=== PATIENT | male | born 1975 | race American Indian/Alaskan Native ===

== ENCOUNTER 2017-05-05 11:41 | Emergency (ER) | payer OTHER ==
--- NOTE | 2017-05-05 13:49 | Emergency Department Report ---
Chief Complaint: Extremity Injury, Lower Stated Complaint: LEFT FOOT PAIN Time Seen by Provider: 05/05/17 12:15 - HPI History of Present Illness: Patient here reports that he injured is left thigh and left foot about a week and a half ago. He is reporting swelling to his left leg, ankle and foot and also to his left thigh. Patient also reported in he has open sores to his left thigh and left outer foot that has healed these having redness and swelling. Pain to left foot is 3/10 and pain to left leg and knee is 7 out of 10. He said a car trailer fell on his left thigh about a week and a half ago. He is not seeking any medical attention. Denies any chest pain or shortness of breath. He said he has a knot to his left thigh. [id number] pain medication taken and he states that he's also been applying Neosporin ointment. - - ROS Review of Systems: ROS Review of Systems: All systems are negative unless stated in HPI above - Exam Vital Signs: - Exam Vital Signs: Vital Signs 05/05/17 05/05/17 12:18 12:19 Temperature 98.8 F 98.8 F Pulse Rate 103 H 61 Respiratory 16 18 Rate Blood Pressure 130/97 130/92 O2 Sat by Pulse 97 100 Oximetry Vital Signs 05/05/17 12:19 Temperature 98.8 F Pulse Rate 61 Respiratory 18 Rate Blood Pressure 130/92 O2 Sat by Pulse 100 Oximetry Physical Exam: Physical Exam: Gen.: This is a 53-year-old male well-nourished well-developed in no acute distress. Extremity: Positive swelling to left lower extremity. Healed wound noted to out her left ankle and left thigh. Ears are scabbed over. Patient with tenderness around healed areas. Left leg swollen without any tenderness of calf. Erythema noted to the left leg. Tenderness to palpate the left leg and left thigh. +2 pulses all extremities. Good sensation and temperatures to extremities. No neurovascular compromise. No clubbing or cyanosis to extremities MSE screening note: Focused history and physical exam performed. Due to findings the following was ordered: ED Medical Decision Making - Medical Decision Making MDM: Patient screened by provider in triage area. Appropriate protocol initiated and patient to be seen in main ED by ED Disposition for MSE Condition: Stable
[2017-05-05 13:57] VITALS: BP 130/92
[2017-05-05 14:17] LABS: Basophils % (Auto) 1.1 % (0.0-1.8); Eosinophils % (Auto) 6.8 % (0.0-4.3); Hematocrit 39.3 % (35.5-45.6); Hemoglobin 13.1 gm/dl (11.8-15.2); Mean Corpuscular HGB Conc 33 % (32-34); Mean Corpuscular Hemoglobin 28 pg (28-32); Mean Corpuscular Volume 85 fl (84-94); Platelet Count 289 K/mm3 (140-440); Red Blood Count 4.65 M/mm3 (3.65-5.03); Red Cell Distribution Width 13.4 % (13.2-15.2); White Blood Count 5.8 K/mm3 (4.5-11.0)
[2017-05-05 14:26] LABS: INR 0.94 (0.87-1.13)
[2017-05-05 14:27] LABS: Partial Thromboplastin Time 30.6 Sec. (24.2-36.6)
[2017-05-05 14:50] LABS: Alanine Aminotransferase 26 units/L (7-56); Albumin 3.6 g/dL (3.9-5); Albumin/Globulin Ratio 0.9 %; Alkaline Phosphatase 70 units/L (35-129); Anion Gap 17 mmol/L; BUN/Creatinine Ratio 14; Blood Urea Nitrogen 14 mg/dL (9-20); Calcium 9.1 mg/dL (8.4-10.2); Carbon Dioxide 27 mmol/L (22-30); Chloride 103.3 mmol/L (98-107); Glucose 85 mg/dL (75-100); Potassium 4.4 mmol/L (3.6-5.0); Sodium 143 mmol/L (137-145); Total Protein 7.7 g/dL (6.3-8.2)
--- NOTE | 2017-05-05 15:41 | XRay Report ---
LEFT FOOT RADIOGRAPHS INDICATION: Traumatic injury with left foot pain, swelling. COMPARISON: None similar. FINDINGS: AP, lateral and oblique left foot radiographs demonstrate mild hallux valgus. Otherwise intact bony articulation. No suspicious erosions. Small plantar calcaneal spur. Mild diffuse soft tissue swelling/prominence along the dorsum of the foot may also extend to the lower leg. CONCLUSION: No acute left foot bony abnormality, though mild soft tissue swelling suspected, as described. Please correlate. Thank you for the opportunity to participate in this patient's care.
--- NOTE | 2017-05-05 15:46 | XRay Report ---
LEFT TIBIA AND FIBULA RADIOGRAPHS INDICATION: Traumatic injury with left foot pain, swelling COMPARISON: None similar at this institution. FINDINGS: AP and lateral left tibia and fibula radiographs demonstrate intact bones. Small plantar calcaneal spur. A tiny, 2 mm radiodensity also noted within lower leg soft tissues posteromedially approximately 11.5 cm above the ankle joint. Included knee and ankle articulations appear unremarkable as well. Mild diffuse lower leg/calf soft tissue swelling/edema possible, extending to the ankle. CONCLUSION: Small, 2 mm radiodense foreign body within left lower leg soft tissues posteromedially with intact left tibia and fibula, as described. Please correlate. Lower leg edema also possible. Thank you for the opportunity to participate in this patient's care.
[2017-05-05] MEDS ORDERED: TYLENOL ONE (18:56)
[2017-05-05] MEDS ORDERED: TYLENOL PO ONE (18:57)
--- NOTE | 2017-05-05 18:57 | Emergency Department Report ---
ED Extremity Problem HPI - General Chief complaint: Extremity Injury, Lower Stated complaint: LEFT FOOT PAIN Time Seen by Provider: 05/05/17 12:15 Source: patient Mode of arrival: Ambulatory Limitations: No Limitations - History of Present Illness Initial comments: Patient here reports that he injured is left thigh and left foot about a week and a half ago. He is reporting swelling to his left leg, ankle and foot and also to his left thigh. Patient also reported in he has open sores to his left thigh and left outer foot that has healed these having redness and swelling. Pain to left foot is 3/10 and pain to left leg and knee is 7 out of 10. He said a car trailer fell on his left thigh about a week and a half ago. He is not seeking any medical attention. Denies any chest pain or shortness of breath. He said he has a knot to his left thigh. [id number] pain medication taken and he states that he's also been applying Neosporin ointment. Tetanus vaccine is up-to-date MD Complaint: extremity pain, extremity swelling Onset/Timin -: days(s) Location: left, lower extremity -: Yes arthralgia, No fever, No associated dyspnea, No associated chest pain Radiation: none Severity scale (0 -10): 3 Quality: aching Consistency: intermittent Improves with: immobilization, rest Worsens with: weight bearing, walking, palpation Associated Symptoms: arthralgias, other (abrasions). denies: chest pain, shortness of breath, fever, myalgias - Related Data Previous Rx's Medication Instructions Recorded Last Taken Type Cephalexin [Keflex] 500 mg PO Q6HR 10 Days #40 capsule 05/05/17 Unknown Rx HYDROcodone/ACETAMINOPHEN [[facility] 1 each PO Q8H PRN 4 Days #12 tablet 05/05/17 Unknown Rx 5-325 Tablet] Ibuprofen [Motrin] 600 mg PO Q8H PRN 5 Days #15 tablet 05/05/17 Unknown Rx Allergies Allergy/AdvReac Type Severity Reaction Status Date / Time No Known Allergies Allergy Unverified 05/05/17 13:48 ED Review of Systems ROS: Stated complaint: LEFT FOOT PAIN Other details as noted in HPI Comment: All other systems reviewed and negative Constitutional: no symptoms reported Respiratory: no symptoms reported Cardiovascular: denies: chest pain, palpitations, dyspnea on exertion, edema, syncope, paroxysmal nocturnal dyspnea Gastrointestinal: denies: abdominal pain, nausea, vomiting, diarrhea, constipation, hematemesis, hematochezia, other Genitourinary: denies: urgency, dysuria, frequency, hematuria, discharge, testicular pain, testicular mass Musculoskeletal: arthralgia. denies: back pain, joint swelling, myalgia Skin: other (abrasions to the lower extremity, left) Neurological: denies: headache, weakness, numbness, paresthesias ED Past Medical Hx - Past Medical History Previous Medical History?: No - Surgical History Past Surgical History?: Yes Additional Surgical History: hernia repair - Family History Family history: hypertension - Social History Smoking Status: Never Smoker Substance Use Type: Marijuana - Medications Home Medications: Home Medications Medication Instructions Recorded Confirmed Last Taken Type Cephalexin [Keflex] 500 mg PO Q6HR 10 Days #40 capsule 05/05/17 Unknown Rx HYDROcodone/ACETAMINOPHEN [[facility] 1 each PO Q8H PRN 4 Days #12 tablet 05/05/17 Unknown Rx 5-325 Tablet] Ibuprofen [Motrin] 600 mg PO Q8H PRN 5 Days #15 tablet 05/05/17 Unknown Rx ED Physical Exam - General Limitations: No Limitations General appearance: alert, in no apparent distress - Head Head exam: Present: atraumatic, normocephalic, normal inspection - Eye Eye exam: Present: normal appearance, PERRL, EOMI. Absent: nystagmus, periorbital swelling, periorbital tenderness Pupils: Present: normal accommodation - ENT ENT exam: Present: normal exam, normal orophraynx, mucous membranes moist - Neck Neck exam: Present: normal inspection, other (no C-spine tenderness). Absent: tenderness, meningismus, full ROM, lymphadenopathy, thyromegaly - Respiratory Respiratory exam: Absent: normal lung sounds bilaterally, respiratory distress, chest wall tenderness - Cardiovascular Cardiovascular Exam: Present: regular rate, normal rhythm, normal heart sounds. Absent: systolic murmur, diastolic murmur - GI/Abdominal GI/Abdominal exam: Present: soft, normal bowel sounds. Absent: distended, tenderness, guarding, rebound, rigid, organomegaly, mass, bruit, pulsatile mass - Extremities Exam Extremities exam: Present: normal inspection, full ROM, normal capillary refill. Absent: tenderness, pedal edema, joint swelling - Expanded Lower Extremity Exam Left Hip exam: Present: normal inspection, full ROM, tenderness, swelling, abrasion, pelvic stability. Absent: laceration, ecchymosis, deformity, crepidus, dislocation, erythema, external rotation, internal rotation, shortening Upper Leg exam: Present: full ROM, tenderness, swelling, abrasion (left anterior thigh), erythema (left anterior thigh anterior thigh around scabbed over abrasions to area..). Absent: normal inspection, laceration, ecchymosis, deformity, crepidus, dislocation Knee exam: Present: normal inspection, full ROM, full knee extension. Absent: tenderness, swelling, abrasion, laceration, ecchymosis, deformity, crepidus, dislocation, erythema, effusion, pain w/ pronation/supination, posterior draw sign, pain/laxity with valgus, pain/laxity with varus Lower Leg exam: Present: full ROM, tenderness, swelling, erythema (left mid leg to distal legmostly surrounding scabbed over deep abrasions). Absent: palpable cord, Alden's sign Ankle exam: Present: full ROM, tenderness, swelling, abrasion (left outer ankle) , erythema. Absent: normal inspection, laceration, ecchymosis, deformity, crepidus, dislocation Foot/Toe exam: Present: full ROM, swelling. Absent: tenderness, abrasion, laceration, ecchymosis, deformity, crepidus, erythema, amputation, puncture wound, foreign body, calcaneal tenderness, tenderness at base of 5th metatarsal , nail avulsion Neuro vascular tendon exam: Present: no vascular compromise. Absent: pulse deficit, abnormal cap refill, motor deficit, sensory deficit, tendon deficit, extremity cold to touch, pallor, abnormal 2-point discrimination, decreased fine /light touch, foot drop, peroneal nerve deficit, significant pain with passive ROM of distal joint Gait: Positive: observed and normal - Back Exam Back exam: Present: normal inspection, full ROM, other (patient ambulates without any difficulties). Absent: tenderness, CVA tenderness (R), CVA tenderness (L), muscle spasm, paraspinal tenderness, vertebral tenderness, rash noted - Neurological Exam Neurological exam: Present: alert, oriented X3, normal gait, reflexes normal. Absent: motor sensory deficit - Psychiatric Psychiatric exam: Present: normal affect, normal mood - Skin Skin exam: Present: warm, dry, intact, erythema, abrasion (lt thigh, lt leg and lt ankle. Area is healed and scabbed over.) - Expanded Skin Exam Expanded Type of lesion: Present: abrasion (left anterior thigh, left leg and left ankle) Distribution of rash: LLE (left thigh, left leg and left ankle with abrasion that is already healed.) Description of rash: Present: tenderness, erythematous, swelling, crusting ( left thigh, left ankle and left leg). Absent: vesicular, blisters, confluent, bullous, petechial, purpuic, urticarial, discharge, fluctuant, indurated, other ED Course Vital Signs 05/05/17 12:19 Temperature 98.8 F Pulse Rate 61 Respiratory 18 Rate Blood Pressure 130/92 O2 Sat by Pulse 100 Oximetry - Reevaluation(s) Reevaluation #1: 05/05/17 19:07 Given [facility] 7.5/325 2 tablets in emergency room for pain. Immunizations up-to- date per patient. 05/05/17 19:29 ED Medical Decision Making - Lab Data Result diagrams: 05/05/17 14:05 05/05/17 14:05 Lab Results 05/05/17 05/05/17 05/05/17 Range/Units 14:05 14:05 14:05 WBC 5.8 (4.5-11.0) K/mm3 RBC 4.65 (3.65-5.03) M/mm3 Hgb 13.1 (11.8-15.2) gm/dl Hct 39.3 (35.5-45.6) % MCV 85 (84-94) fl MCH 28 (28-32) pg MCHC 33 (32-34) % RDW 13.4 (13.2-15.2) % Plt Count 289 (140-440) K/mm3 Lymph % (Auto) 37.8 H (13.4-35.0) % Cherry % (Auto) 8.3 H (0.0-7.3) % Eos % (Auto) 6.8 H (0.0-4.3) % Baso % (Auto) 1.1 (0.0-1.8) % Lymph # 2.2 (1.2-5.4) K/mm3 Cherry # 0.5 (0.0-0.8) K/mm3 Eos # 0.4 (0.0-0.4) K/mm3 Baso # 0.1 (0.0-0.1) K/mm3 Seg Neutrophils % 46.0 (40.0-70.0) % Seg Neutrophils # 2.7 (1.8-7.7) K/mm3 PT 13.0 (12.2-14.9) Sec. INR 0.94 (0.87-1.13) APTT 30.6 (24.2-36.6) Sec. Sodium 143 (137-145) mmol/L Potassium 4.4 (3.6-5.0) mmol/L Chloride 103.3 (98-107) mmol/L Carbon Dioxide 27 (22-30) mmol/L Anion Gap 17 mmol/L BUN 14 (9-20) mg/dL Creatinine 1.0 (0.8-1.5) mg/dL Estimated GFR > 60 ml/min BUN/Creatinine Ratio 14 % Glucose 85 (75-100) mg/dL Calcium 9.1 (8.4-10.2) mg/dL Total Bilirubin 0.30 (0.1-1.2) mg/dL AST 15 (5-40) units/L ALT 26 (7-56) units/L Alkaline Phosphatase 70 (35-129) units/L Total Protein 7.7 (6.3-8.2) g/dL Albumin 3.6 L (3.9-5) g/dL Albumin/Globulin Ratio 0.9 % Critical care attestation.: If time is entered above; I have spent that time in minutes in the direct care of this critically ill patient, excluding procedure time. ED Disposition Clinical Impression: Left leg cellulitis, Swelling of left lower extremity, Abrasion, multiple sites , Arthralgia of multiple sites, Foreign body (FB) in soft tissue Injury of leg, left, superficial, infected Qualifiers: Encounter type: initial encounter Qualified Code(s): S80.922A - Unspecified superficial injury of left lower leg, initial encounter Disposition: TO HOME OR SELFCARE Is pt being admited?: No Does the pt Need Aspirin: No Condition: Stable Instructions: Soft Tissue Foreign Body (ED), Cellulitis (ED), Leg Edema (ED), Abrasion (ED), Arthralgia (ED) Additional Instructions: Please follow up with general surgery due to small metal seen in left leg at injury site. Please follow up with orthopedic doctor if you continue to have left lower extremity pain. Take antibiotic as prescribed. Keep affected areas that started healed to left lower extremity clean and dry. You Have cellulitis which an infection at the injured side To left thigh and leg Follow up with primary care physician in 2-3 days and if you do not have a primary care physician please follow up at [facility] status post injury. If you notice, increasing redness, increasing pain, increasing swelling, fever and/or chills please return to the emergency room otherwise follow-up with primary care as instructed Your Doppler ultrasound of left lower extremity was negative for blood clots X-ray of your thigh, ankle and left leg reveals soft tissue swelling but no fracture or broken bones. you have small metal Foreign body to left leg area. Please follow-up with Dr. Geronimo who is general surgery for evaluation and possible removal Please do not drive or operate heavy machinery while taking [facility] as medication can cause drowsiness. Prescriptions: Cephalexin [Keflex] 500 mg PO Q6HR 10 Days #40 capsule HYDROcodone/ACETAMINOPHEN [[facility] 5-325 Tablet] 1 each PO Q8H PRN 4 Days #12 tablet PRN Reason: Pain , Severe (7-10) Ibuprofen [Motrin] 600 mg PO Q8H PRN 5 Days #15 tablet PRN Reason: Pain Referrals: PRIMARY CARE, [Primary Care Provider] - 2-3 Days [facility] [Outside] - 2-3 Days ALISSA GERONIMO DO [Staff Physician] - 2-3 Days Forms: Accompanied Note, Work/School Release Form(ED)
[2017-05-05] MEDS ORDERED: NORCO 7.5/325 PO ONE (19:03)
== END 2017-05-05 19:32 | disposition home or self-care (01) ==
LOC: ED 11:41
DX: S70.312A Abrasion, left thigh, initial encounter (principal); S90.512A Abrasion, left ankle, initial encounter; L03.116 Cellulitis of left lower limb; F12.10 Cannabis abuse, uncomplicated; W20.8XXA Other cause of strike by thrown, projected or falling object, initial encounter; Y93.89 Activity, other specified; Y92.89 Other specified places as the place of occurrence of the external cause; Y99.8 Other external cause status
CPT/HCPCS: 36415; 80053; 85025; 85610; 85730